=== PATIENT | male | born 1980 | race Caucasian/White ===

== ENCOUNTER 2019-02-21 17:26 | Inpatient (IN) | payer SELFPAY ==
[~2019-02-21] VITALS: Ht 172.7 cm; Wt 95.7 kg
[2019-02-21 17:32] VITALS: BP 163/87
--- NOTE | 2019-02-21 18:00 | NUR ---
PT HR 142, STATES HAVING BINGE DRINKING FOR LAWST TWO -THREE DAYS. 1L NS BOLUS IVF STARTED. RR FLUCTATES 20-40. MD MADE AWARE. WILL PUT THE ORDER IN.
--- NOTE | 2019-02-21 18:00 | NUR ---
PT 38M BIB EMS C/O DEHYDRATION, WEAKNESS, DIZZINESS X 1 DAY. PT IS HOMELESS. STATES BINGE DRINKING ETOH SINCE LAST TWO -THREE DAYS. DENIES ATKING ANY DRUGS. PT IS TACHYCARDIC AT 134 BPM NOW- STATES TAKING CAFFEINE PILLS TODAY TO BE ALERT FOR WORK. DENIES PAIN AT THIS TIME. AOX4. NO PASGT MEDICAL HX. IVF INFUSING IN PT. HX- DENIES RX- TYLENOL FOR TOOTHACHE.
[2019-02-21] MEDS ORDERED: NACL 0.9% 2,000 ML IV SCH (18:02)
--- NOTE | 2019-02-21 18:13 | NUR ---
LAB AGT THE BEDSIDE.
[2019-02-21 18:49] LABS: BASOPHILS % (AUTO) 0.3 % (0.0-2.0); HEMATOCRIT 41.5 % (36-52); LYMPHOCYTES % (AUTO) 7.1 % (20.5-51.1); MEAN CORPUSCULAR HEMOGLOBIN 31 pg (27-31); MEAN CORPUSCULAR HGB CONC 34 g/dL (33-37); MEAN CORPUSCULAR VOLUME 92.4 fL (80-94); MONOCYTES # (AUTO) 0.7 K/uL (0.8-1.0); MONOCYTES % (AUTO) 5.3 % (1.7-9.3); NEUTROPHILS # (AUTO) 12.1 K/uL (1.8-7.7); NEUTROPHILS % (AUTO) 87.3 % (42.2-75.2); PLATELET COUNT (AUTO) 204 K/uL (140-450); RED BLOOD CELL COUNT(AUTO) 4.49 MIL/uL (4.20-6.10); RED CELL DISTRIBUTION WIDTH 13.6 % (11.6-13.7); WHITE BLOOD COUNT (AUTO) 13.9 K/uL (4.8-10.8)
--- NOTE | 2019-02-21 18:55 | NUR ---
POST ABG DRAW.. PLACED PATIENT ON 2LNC.
--- NOTE | 2019-02-21 19:00 | NUR ---
CHECKED ON PT. TEMP ORAL 98.5. PT ST 144 ON 12 LEAD ECG.
--- NOTE | 2019-02-21 19:16 | NUR ---
PT REFUSED CT AT THIS TIME, STATES HE UNCOMFORTABLW WITH THE PROCEESS, WANTS TO TAKE FOR SOME TIME. MEDIA ACCOUNT EXECUTIVE TO COME BACK IN A WHILE.
--- NOTE | 2019-02-21 19:23 | NUR ---
GAVE MORE WATER TO PT, UNABLE TO URINATE AT THIS TIME. WILL TRY AGAIN. MIVF INFUSING WELL.
[2019-02-21] MEDS ORDERED: NACL 0.9% 1,000 ML IV ONE (19:40)
--- NOTE | 2019-02-21 19:52 | NUR ---
CALLED CT TO PICK THE PT . WILL PICK YUP THE PT.
[2019-02-21 19:54] LABS: CREATININE 1.1 mg/dL (0.7-1.3); GFR ARICAN-AMERICAN 95 mL/min (>90); GLUCOSE 105 mg/dL (74-106); TOTAL BILIRUBIN 0.5 mg/dL (0.0-1.0); UREA NITROGEN, BLOOD 10 mg/dL (7-18)
[2019-02-21 19:55] LABS: ACETAMINOPHEN < 0.5 ug/ml (10-30); ALBUMIN 3.6 g/dL (3.4-5.0); ASPARTATE AMINOTRANSFERASE 27 U/L (15-37); SALICYLATE < 2.8 mg/dL (2.8-20.0)
--- NOTE | 2019-02-21 19:57 | NUR ---
PT TAKEN TO CT VIA RENRIQUE.
[2019-02-21 20:04] LABS: ANION GAP 15.6 (8-16); CARBON DIOXIDE 24.1 mmol/L (21-32); CHLORIDE 106 mmol/L (98-107); POTASSIUM 3.7 mmol/L (3.5-5.1); SODIUM SERUM 142 mmol/L (136-145)
[2019-02-21 20:14] LABS: APPEARANCE,URINE CLEAR (CLEAR); BILIRUBIN,URINE NEGATIVE (NEGATIVE); BLOOD, URINE NEGATIVE (NEGATIVE); COLOR,URINE YELLOW (YELLOW); LEUKOCYTE ESTERASE ,URINE NEGATIVE (NEGATIVE); NITRITE, URINE NEGATIVE (NEGATIVE); UGLUCOSE NEGATIVE (NEGATIVE)
[2019-02-21] MEDS ORDERED: cefTRIAXone 1,000 MG VIAL ONE (20:27)
[2019-02-21] MEDS ORDERED: HYDROcodone/APAP 7.5/325 MG 1 TAB PO PRN (20:35)
[2019-02-21] MEDS ORDERED: FAMOTIDINE 20 MG/2 ML VIAL IV PRN (20:35)
[2019-02-21] MEDS ORDERED: ONDANSETRON 4 MG/2 ML VIAL IM/IVP PRN (20:35)
[2019-02-21] MEDS ORDERED: ACETAMINOPHEN 325 MG TAB PO PRN (20:35)
[2019-02-21] MEDS ORDERED: DOCUSATE SODIUM 100 MG GELCAP PO PRN (20:35)
[2019-02-21 21:20] VITALS: BP 173/103
[2019-02-21] MEDS ORDERED: THIAMINE 200 MG/2 ML VIAL IM ONE (21:20)
--- NOTE | 2019-02-21 21:20 | NUR ---
Patient will be admitted to care of DR. JOSEPH. Admited to [facility] FLOOR . Will go to room 119 B. Belongings list completed. Report to PATRICIA OROSCO.
--- NOTE | 2019-02-21 21:20 | NUR ---
PT ARRIVED VIA GURNEY TO BED 119 AND AMBULATED TO BED B INDEPENDENTLY. PT AOX3 WITH SKIN INTACT, BUT HAS BRUISES ON UPPER ARMS, CHEST AND EYES. IV GUAGE IS 20 ON LEFT AC INTACT AND FLUSHED PATENT. PT FINISHING UP N/S BOLUS AT THIS TIME. PT HAS NO S/S OF PAIN OR DISTRESS NOTED. T 98.8 P 109 R 18 B/P 173/103. 02 97% ON ROOM AIR. REPORT GIVEN BY MONTRELL CUSTOMER EXPERIENCE CONSULTANT NURSE AT BEDSIDE FOR CONTINUITY OF CARE.
[2019-02-21 21:21] LABS: BARBITURATE, URINE NEG. ng/ml (NEG <=200); BENZODIAZEPINE, URINE NEG. ng/mL (NEG <=200); CANNABINOID, URINE NEG. ng/mL (NEG <=50); COCAINE, URINE NEG. ng/mL (NEG <=300); OPIATE, URINE NEG. ng/mL (NEG <=2000); PHENCYCLIDINE SCREEN,URINE NEG. ng/mL (NEG <=25)
[2019-02-21 21:30] LABS: FREE T4 (FREE THYROXINE) 0.87 ng/dL (0.76-1.46); MAGNESIUM 1.5 mg/dL (1.8-2.4); PHOSPHORUS 2.2 mg/dL (2.5-4.9); THYROID STIMULATING HORMONE 1.03 uIU/mL (0.34-3.74)
--- NOTE | 2019-02-21 21:30 | NUR ---
URINE SPECIMEN COLLECTED AND SENT TO LAB.
[2019-02-21 21:53] LABS: PROTHROMBIN TIME 10.4 secs (10.8-13.4)
[2019-02-21] MEDS ORDERED: CLINDAMYCIN 600 MG/4 ML VIAL ONE (22:01)
[2019-02-21] MEDS: hydrALAZINE 20 MG/ML VIAL IVP PRN (22:09)
[2019-02-21] MEDS: NACL 0.9% 1,000 ML IV SCH (22:15)
--- NOTE | 2019-02-21 22:15 | NUR ---
PT IN BED AOX3. PT AMBULATED TO TOILET AND BACK STEADILY. PT GIVEN ORDERED CLEOCIN, PRN APRESOLINE FOR HTN OF SBP OVER 160 WELL ORDERED IM VITAMIN B SHOT. IV SITE OF 20G ON LEFT F/A INTACT AND RUNNING NS AT 150MLS/HR. WILL RETAKE B/P. PT DENIES PAIN AND HAS NO S/S OF DISTRESS NOTED.
[2019-02-21] MEDS: CLINDAMYCIN 600 MG in DEXTROSE 5% 50 ML IV SCH ×2 (22:16→23:57)
--- NOTE | 2019-02-21 23:00 | NUR ---
CARIDAD FROM THE LAB CALLED TO REPORT A CRITICAL LAB OF LACTIC ACID WHICH WAS 3 TRENDING DOWN FROM 4.6. RETAKE OF B/P IS 164/98. WILL CONTINUE TO MONITOR. MD DRISCOLL AWARE.
[2019-02-22] VITALS: BP 164/98
--- NOTE | 2019-02-22 | NUR ---
PT REFUSES ORDERED LIBRIUM RISKS AND BENEFITS EXPLAINED HOWEVER PT FEELS THAT HE DOESN'T NEED IT AT THIS TIME. V/S FOLLOWS T 98.4 P 105 R 18 B/P 164/98 02 98% ON ROOM AIR.
[2019-02-22] MEDS: hydrALAZINE 20 MG/ML VIAL IVP PRN ×2 (00:10→15:54)
[2019-02-22] MEDS ORDERED: SODIUM PHOS / POTASSIUM PHOS 1 PKT PDR PO ONE (02:30)
--- NOTE | 2019-02-22 02:38 | NUR ---
B/P RETAKEN AND CONTINUES TO REMAIN HIGH, 171/101. SPOKE WITH MD DRISCOLL REGARDING PT B/P. HE SAID THAT PT IS WITHDRAWING FORM ETOH AND TO GIVEN PT ATIVAN IVP. ALSO MADE AWARE THAT PT REFUSES LIBRIUM AT THIS TIME. WILL CONTINUE TO ENCOURAGE PT TO TAKE HIS LIBRIUM.
[2019-02-22] MEDS ORDERED: MAG SULF 2000 MG/WATER PREMIX 50 ML IV ONE (03:00)
[2019-02-22] MEDS: LORazepam 2 MG/ML VIAL IVP PRN ×2 (03:48→12:22)
[2019-02-22 04:00] VITALS: BP 159/107
[2019-02-22] MEDS: NACL 0.9% 1,000 ML IV SCH ×3 (04:00→17:24)
--- NOTE | 2019-02-22 04:00 | NUR ---
PT GIVEN ORDERED NEUTRA PHOS AND MAG RIDER DUE TO LOW LEVELS OF THESE ELECTROLYTES IN THE BLOOD. PT ALSO GIVEN PRN/IVP ATIVAN FOR AGITATION AND TO HELP LOWE PT B/P. RISKS AND BENEFITS OF LIBRIUM EXPLAINED. PT CONTINUES TO DECLINE MEDICATION. V/S FOLLOWS T 98.6 P 100 R 18 B/P 178/103 02 98% ON ROOM AIR. WILL CONTINUE TO MONITOR PT FOR B/P AGMINATION, HTN AND DISCOMFORT.
[2019-02-22] MEDS: chlordiazePOXIDE 25 MG CAP PO SCH ×4 (06:00→18:00)
[2019-02-22] MEDS ORDERED: CLINDAMYCIN 600 MG/4 ML VIAL ONE (06:15)
--- NOTE | 2019-02-22 06:38 | NUR ---
PT PULLED OUT IV SITE. PT GIVEN COLACE PO/PRN FOR C/O OF CONSTIPATION. LAST V/S FOLLOWS T 98.9 P 116 R 20 B/P 159/107. 02 97% ON ROOM AIR. PT DECLINED LIBRIUM WELL ATIVAN, PT SAID HE WAS NOT ANXIOUS AND DOESN'T WANT ATIVAN AT THIS TIME.
[2019-02-22] MEDS: CLINDAMYCIN 600 MG in DEXTROSE 5% 50 ML IV SCH ×3 (06:57→18:00)
--- NOTE | 2019-02-22 07:00 | NUR ---
NEW IV INSERTED BY KELLY GOMEZ THE NEW IV IS A 22G ON THE RIGHT AC. SAY GOMEZ AND IS RUNNING AT 100MLS/HR ORDERED.
--- NOTE | 2019-02-22 07:10 | NUR ---
REPORT GIVEN TO KELLEN GOMEZ DAYSHIFT NURSE AT BEDSIDE FOR CONTINUITY OF CARE,M PT IN STABLE CONDITION.
[2019-02-22 07:44] LABS: BASOPHILS # (AUTO) 0.1 K/uL (0.00-0.22); BASOPHILS % (AUTO) 0.5 % (0.0-2.0); EOSINOPHILS % (AUTO) 0.1 % (0.0-4.0); HEMATOCRIT 42.1 % (36-52); HEMOGLOBIN 14.3 g/dL (12.0-18.0); LYMPHOCYTES % (AUTO) 8.9 % (20.5-51.1); MEAN CORPUSCULAR HEMOGLOBIN 32 pg (27-31); MEAN CORPUSCULAR HGB CONC 34 g/dL (33-37); MEAN CORPUSCULAR VOLUME 92.4 fL (80-94); MONOCYTES # (AUTO) 0.9 K/uL (0.8-1.0); MONOCYTES % (AUTO) 7.6 % (1.7-9.3); NEUTROPHILS # (AUTO) 9.5 K/uL (1.8-7.7); NEUTROPHILS % (AUTO) 82.9 % (42.2-75.2); PLATELET COUNT (AUTO) 198 K/uL (140-450); RED BLOOD CELL COUNT(AUTO) 4.55 MIL/uL (4.20-6.10); WHITE BLOOD COUNT (AUTO) 11.5 K/uL (4.8-10.8)
[2019-02-22 08:00] VITALS: BP 153/99
[2019-02-22 08:00] LABS: ANION GAP 14.9 (8-16); CARBON DIOXIDE 24.3 mmol/L (21-32); CREATININE 0.9 mg/dL (0.7-1.3); POTASSIUM 3.2 mmol/L (3.5-5.1)
[2019-02-22] MEDS ORDERED: MULTIVITAMIN-12 10 ML, THIAMINE 100 MG, FOLIC ACID 1 MG, MAGNESIUM SULFATE 50% 2,000 MG... IV SCH ×10 (08:00→09:00)
--- NOTE | 2019-02-22 08:12 | NUR ---
RECEIVED BEDSIDE REPORT FROM TEST RACK OPERATOR NURSE, PT IS AWAKE AND ALERT IN BED, ON ROOM AIR, NO S/S OF ANY ACUTE DISTRESS. BRUISING NOTED ON BUE'S AND AROUND EYES. IV SITE IS NOTED ON THE R AC 22 G, INFUSING NS 150 ML/HR. PT IS ON 2 G NA DIET. PT IS AMBULATORY. CALL LIGHT IS WITHIN REACH, WILL CONTINUE TO MONITOR.
--- NOTE | 2019-02-22 08:35 | NUR ---
AD MEDS ADMINISTERED, PT TOLERATED WELL. WAITING ON BANANA BAG FROM PHARMACY.
[2019-02-22] MEDS: LACTOBACILLUS RHAMNOSUS GG 1 EACH CAP PO SCH (08:37)
[2019-02-22] MEDS ORDERED: LISINOPRIL 5 MG TAB PO SCH (09:00)
--- NOTE | 2019-02-22 09:26 | NUR ---
BANANA BAG HUNG
--- NOTE | 2019-02-22 11:00 | NUR ---
PT TAKING A SHOWER
[2019-02-22 12:00] VITALS: BP 151/99
--- NOTE | 2019-02-22 12:20 | NUR ---
SECURITY CALLED TO TALK TO PATIENT TO COME OUT OF THE SHOWER. PT BEEN IN THE SHOWER FOR 1.5 HOURS, DOOR LOCKED, SAYING THAT HE IS COMING OUT "ANY MINUTE", BUT CONTINUES TO STAY IN THE SHOWER.
--- NOTE | 2019-02-22 12:33 | NUR ---
PT IS OUT FROM SHOWER AND RECEIVING HIS IV CLINDAMYCIN AT THIS TIME
--- NOTE | 2019-02-22 14:19 | NUR ---
PATIENT HAS BEEN SCREENED AND CATEGORIZED HIGH NUTRITION RISK. PATIENT WILL BE SEEN WITHIN 1-2 DAYS OF ADMISSION. 02/22/19 - 02/23/19 MIKE MEJIA MBA, RD
[2019-02-22 16:00] VITALS: BP 169/107
--- NOTE | 2019-02-22 16:00 | NUR ---
PT'S BP IS 169/107, PRN APRESOLINE IV ADMINISTERED, WILL RECHECK PT'S BP IN 1 HOUR.
--- NOTE | 2019-02-22 16:18 | NUR ---
PT IS HAVING AN ECHOCARDIOGRAM AT THIS TIME
--- NOTE | 2019-02-22 17:46 | NUR ---
02/22/19 RD INITIAL ASSESSMENT COMPLETED PLEASE REFER TO NUTRITION ASSESSMENT UNDER CARE ACTIVITY FOR ESTIMATED NUTRITIONAL NEEDS. RD RECOMMENDATIONS: CONTINUE CURRENT DIET F/U 2-3 DAYS; HIGH RISK MIKE MEJIA MBA, RD
[2019-02-22] MEDS ORDERED: POTASSIUM CHLORIDE 10 MEQ TABER PO ONE (18:20)
[2019-02-22] MEDS ORDERED: MAGNESIUM OXIDE 400 MG TAB PO ONE (18:20)
--- NOTE | 2019-02-22 18:44 | NUR ---
PT IN THE RESTROOM HAVING A BOWEL MOVEMENT. PT HAS BEEN IN THE RESTROOM FOR THE LAST 40 MINUTES, AND STATES THAT HE STILL IS NOT READY TO COME OUT. I TOLD HIM THAT I HAVE MEDICATIONS FOR HIM AND IV ABX. PT STATES THAT HE NEEDS MORE TIME. WILL CHECK ON PT SHORTLY.
--- NOTE | 2019-02-22 19:24 | NUR ---
RECEIVED REPORT FROM KELLEN GOMEZ DAYSHIFT NURSE AT BEDSIDE FOR CONTINUITY OF CARE, PT IN STABLE CONDITION.
--- NOTE | 2019-02-22 19:25 | NUR ---
PT ENDORSED TO SKI MAKER WOOD NURSE FOR CONTINUITY OF CARE. PT IN STABLE CONDITION
--- NOTE | 2019-02-22 19:25 | NUR ---
PT OUT OF THE RESTROOM, PT SEEMS TO BE SWEATING, HIS HR IS UP IN THE 130'S, AND BP IS 177/112 AT THIS TIME. WHEN ASKED WHY THE PATIENT SPENT SO MUCH TIME IN THE BATHROOM, PT SAID HE WAS TRYING TO HAVE A BM, BUT WAS NOT ABLE TO HAVE ONE.
--- NOTE | 2019-02-22 19:45 | NUR ---
PT IN BED, RETURNED FROM RESTROOM CLINDAMYCIN RESTARTED. V/S FOLLOWS T 98.3 P 126 R 20 B/P 166/109 02 95% ON ROOM AIR.
[2019-02-22 20:00] VITALS: BP 166/109
--- NOTE | 2019-02-22 20:25 | NUR ---
PT DECIDED TO TAKE HIMSELF OFF IV AND GO TAKE A SHOWER.
--- NOTE | 2019-02-22 21:00 | NUR ---
PT OUT OF SHOWER AND BACK IN BED, HOWEVER PT PULLED OUT IV SITE WELL TELEMETRY LEADS.
--- NOTE | 2019-02-22 21:30 | NUR ---
INFECTIOUS CONTROL DR. GANN AT BEDSIDE CONSULTING WITH PT.
[2019-02-22] MEDS ORDERED: METOPROLOL 25 MG TAB PO SCH (22:00)
[2019-02-22] MEDS ORDERED: SODIUM PHOSPHATE 118 ML ENEM RC SCH (22:00)
--- NOTE | 2019-02-22 22:00 | NUR ---
SPOKE WITH MD IRIZARRY CONCERNING PT HIGH BLOOD PRESSURE AND HEART RATE, WELL PT SAYING THAT HE HAS HAD A BM IN 2-3 DAYS. MD ORDERED LOPRESSOR 25MG X1 FOR HTN AND ST. NEW IV SITE ON RIGHT HAND 22G. PT SAID THAT HE WOULD TAKE THE ENEMA LATER AFTER IV INFUSIONS ARE DONE. BOWEL SOUNDS PRESENT AND PT HAS NO C/O OF PAIN OR DISTRESS NOTED.
--- NOTE | 2019-02-22 22:35 | NUR ---
SPOKE WITH MD IRIZARRY CONCERNING RETAKE OF B/P. MD IRIZARRY SAID TO RETAKE B/P AT MIDNIGHT. MD IRIZARRY ALSO SPOKE WITH PT CONCERNING THE ORDERED LIBRIUM. HE EXPLAINED RISKS AND BENEFITS TO PT AT BEDSIDE. MD IRIZARRY SAID THAT PT DID AGREE TO TAKE THE LIBRIUM WHEN DUE NEXT.
[2019-02-23] VITALS: BP 159/112
--- NOTE | 2019-02-23 | NUR ---
PT AGREED TO TAKE ORDERED LIBRIUM.
--- NOTE | 2019-02-23 00:45 | NUR ---
PT IN BED, HE REFUSES TO WEAR GOWN. IV SITE INTACT AND IS A 20G ON R WRIST RUNNING BANANA BAG ORDERED.V/S FOLLOWS T 98.2 P 97 R 18 B/P 159/112 02 97% ON ROOM AIR. ALL REQUESTED NEEDS ATTENDED BY STAFF.
[2019-02-23] MEDS: chlordiazePOXIDE 25 MG CAP PO SCH ×3 (01:02→11:50)
[2019-02-23] MEDS: CLINDAMYCIN 600 MG in DEXTROSE 5% 50 ML IV SCH ×3 (01:05→12:33)
[2019-02-23] MEDS: hydrALAZINE 20 MG/ML VIAL IVP PRN (03:05)
--- NOTE | 2019-02-23 03:10 | NUR ---
SPOKE WITH MD IRIZARRY REGARDING PT CONTINUED HTN AND ST HEART RATE, MD IRIZARRY AGREED FOR PT TO RECEIVE IVP/PRN HYDRALAZINE. CURRENT B/P IS 160/113. WILL CONTINUE TO MONITOR HEART RATE AND B/P OF PT.
[2019-02-23 04:00] VITALS: BP 153/101
--- NOTE | 2019-02-23 04:40 | NUR ---
PT PULLED OUT IV SITE IN R WRIST. SPOKE WITH MD IRIZARRY WHOM SPOKE TO PT REGARDING WHY PT KEEPS PULLING IV OUT. PT REQUESTED ORAL PILL OR IM SHOT BUT PT MADE AWARE THAT THE MEDICATION AND THE STRENGTH OF THE MEDICATION NEEDS TO BE DELIVERED VIA IV SITE. PT WAS ASKED AGAIN IF HE WOULD BE WILLING TO TAKE THE MEDICATION VIA IV AND PT SAID NO.
--- NOTE | 2019-02-23 07:20 | NUR ---
RECEIVED REPORT FROM TEST AND RESEARCH REACTOR OPERATOR NURSE. PT IS CURRENTLY OUT OF THE ROOM, TAKING A SHOWER, LOCKED THE SHOWER DOOR. PER NIGHT NURSE, PT TOOK A SHOWER IN THE MIDDLE OF THE NIGHT WELL. PER NIGHT RN, PT DOES NOT HAVE AN IV SITE BECAUSE HE HAS BEEN PULLING THEM OUT AND BEING NONCOMPLIANT WITH IV MED ADMINISTRATION. PT HAS ALSO BEEN REMOVING HIS TELEMONITOR LEADS DESPITE MULTIPLE INSTRUCTIONS TO KEEP THEM ON.
--- NOTE | 2019-02-23 07:54 | NUR ---
PT STILL IN THE SHOWER, DOOR LOCKED. I KNOCKED ON THE DOOR MULTIPLE TIMES, PT ANSWERS "COMING"
[2019-02-23 08:00] VITALS: BP 137/92
--- NOTE | 2019-02-23 08:33 | NUR ---
PT IS OUT OF THE SHOWER AND DRESSED. EATING BREAKFAST AT THIS TIME. I TALKED WITH PT REGARDING HIS IV MEDICATIONS, PT SAYS HE WANTS TO TALK WITH DOCTOR BEFORE HE DECIDES TO HAVE ANOTHER IV.
[2019-02-23] MEDS: LACTOBACILLUS RHAMNOSUS GG 1 EACH CAP PO SCH (08:44)
--- NOTE | 2019-02-23 08:45 | NUR ---
AM MEDS ADMINISTERED, PT TOLERATED WELL
--- NOTE | 2019-02-23 08:52 | NUR ---
TELEMETRY BOX APPLIED TO PATIENT AND INSTRUCTED NOT TO TAKE IT OFF. PT VERBALIZED UNDERSTANDING.
[2019-02-23] MEDS ORDERED: METOPROLOL 25 MG TAB PO SCH ×2 (09:00)
[2019-02-23] MEDS ORDERED: LISINOPRIL 20 MG TAB PO SCH (09:00)
[2019-02-23] MEDS ORDERED: DOCUSATE SODIUM 100 MG GELCAP PO SCH (09:00)
[2019-02-23] MEDS ORDERED: LISINOPRIL 5 MG TAB PO SCH (09:00)
[2019-02-23] MEDS ORDERED: MULTIVITAMIN-12 10 ML, THIAMINE 100 MG, MAGNESIUM SULFATE 50% 2,000 MG, FOLIC ACID 1 MG... IV SCH ×5 (09:00)
--- NOTE | 2019-02-23 09:30 | NUR ---
DR DIXON SPEAKING WITH PT AT THIS TIME, PT SAYS THAT HE IS WILLING TO GET ANOTHER IV AND THAT HE WILL NOT PULL IT OUT. WILL ATTEMPT TO INSERT IV
[2019-02-23 10:00] LABS: BASOPHILS # (AUTO) 0.1 K/uL (0.00-0.22); BASOPHILS % (AUTO) 0.9 % (0.0-2.0); EOSINOPHILS # (AUTO) 0.1 K/uL (0-0.4); EOSINOPHILS % (AUTO) 0.6 % (0.0-4.0); HEMATOCRIT 44.1 % (36-52); LYMPHOCYTES # (AUTO) 1.6 K/uL (2.0-11.5); LYMPHOCYTES % (AUTO) 13.1 % (20.5-51.1); MEAN CORPUSCULAR HEMOGLOBIN 31 pg (27-31); MEAN CORPUSCULAR HGB CONC 34 g/dL (33-37); MEAN CORPUSCULAR VOLUME 92.2 fL (80-94); NEUTROPHILS # (AUTO) 9.4 K/uL (1.8-7.7); NEUTROPHILS % (AUTO) 77.4 % (42.2-75.2); PLATELET COUNT (AUTO) 237 K/uL (140-450); RED BLOOD CELL COUNT(AUTO) 4.79 MIL/uL (4.20-6.10); RED CELL DISTRIBUTION WIDTH 13.9 % (11.6-13.7); WHITE BLOOD COUNT (AUTO) 12.1 K/uL (4.8-10.8)
[2019-02-23 10:07] LABS: CARBON DIOXIDE 24.7 mmol/L (21-32); POTASSIUM 3.7 mmol/L (3.5-5.1)
[2019-02-23 10:12] LABS: MAGNESIUM 2.2 mg/dL (1.8-2.4); PHOSPHORUS 3.7 mg/dL (2.5-4.9)
--- NOTE | 2019-02-23 10:29 | NUR ---
IV INSERTED L AC 22 G, PATENT AND INTACT. BANANA BAG INFUSING AT THIS TIME. PT WAS INSTRUCTED TO NOT PULL ON IV. Addendum: 02/23/19 at 1031 by Lesa Bird RN CORRECTION: Cici CASTILLO
--- NOTE | 2019-02-23 11:02 | NUR ---
PT KEEPS REMOVING HIS TELEMETRY LEADS DESPITE BEING INSTRUCTED SEVERAL TIMES NOT TO REMOVE THEM. I INFORMED PT THAT WE NEED TO MONITOR HIS HEART RHYTHM DUE TO HIS ELEVATED HEART RATE AND HIGH BP. PT VERBALIZES UNDERSTANDING EACH TIME, BUT CONTINUES TO TAKE OFF THE LEADS.
[2019-02-23 12:00] VITALS: BP 115/73
--- NOTE | 2019-02-23 12:35 | NUR ---
PT STATES THAT HE WANTS TO GO OUTSIDE TO SMOKE, THAT HE WANTS TO GO HANG OUT IN THE FRONT LOBBY. WHEN INFORMED THAT PT CANNOT GO OUTSIDE OR SMOKE, HE SAID THAT HE WOULD LIKE TO TALK WITH THE DOCTOR. DR DIXON AWARE AND WILL GO TALK TO PT. Addendum: 02/23/19 at 1450 by Lesa Bird RN DR DIXON SPOKE WITH PT, INFORMED HIM THAT HE IS NOT ALLOWED TO GO OFF THE UNIT. PT VERBALIZED UNDERSTANDING.
--- NOTE | 2019-02-23 14:50 | NUR ---
PT NAPPING AT THIS TIME, BANANA BAG INFUSING.
--- NOTE | 2019-02-23 15:45 | NUR ---
PT DECIDED TO LEAVE AGAINST MEDICAL ADVICE. DR DIXON NOTIFIED. DR DIXON HAD TALKED WITH THE PATIENT ABOUT IMPORTANCE OF COMPLETING HIS TREATMENT, BUT PT STILL INSISTS ON LEAVING. HE VERBALIZED UNDERSTANDING THAT HE CANNOT STAY ANOTHER NIGHT AT THE HOSPITAL.
--- NOTE | 2019-02-23 16:49 | NUR ---
RIR REPORT DONE ON PT'S AMA. UNIQUE ID# [id number]
== END 2019-02-23 16:00 | disposition left against medical advice (07) | DRG 871 ==
LOC: MED 17:26 → MTU 20:41
PROVIDERS: ADMIT General Practice; ATTEND General Practice
DX: A41.9 Sepsis, unspecified organism (principal); G92 Toxic encephalopathy; E43 Unspecified severe protein-calorie malnutrition; F10.239 Alcohol dependence with withdrawal, unspecified; L03.90 Cellulitis, unspecified; T43.621A Poisoning by amphetamines, accidental (unintentional), initial encounter; R65.20 Severe sepsis without septic shock; E86.0 Dehydration; F17.210 Nicotine dependence, cigarettes, uncomplicated; Y90.9 Presence of alcohol in blood, level not specified; F15.129 Other stimulant abuse with intoxication, unspecified; I16.0 Hypertensive urgency; E83.39 Other disorders of phosphorus metabolism; E83.42 Hypomagnesemia; K05.30 Chronic periodontitis, unspecified; Z53.21 Procedure and treatment not carried out due to patient leaving prior to being seen by health care provider; Z56.0 Unemployment, unspecified; Z68.32 Body mass index [BMI] 32.0-32.9, adult; Y92.89 Other specified places as the place of occurrence of the external cause; Z59.0 Homelessness
CPT/HCPCS: 36415; 36600; 70450; 71045; 80048; 80053; 80305; 81003; 82140; 82150; 82550; 82553; 82803; 83036; 83605; 83615; 83690; 83735; 83880; 84100; 84439; 84443; 84484; 85025; 85610; 85730; 87040; 87081; 87086; 93005; 96361; 96365; 99291; A9153; G0480; G0482; J0360; J0696; J2060; J2405; J3411; J3475; J3490; J7030; J7060; Q0092